=== PATIENT | female | born 1985 | race Caucasian/White ===

== ENCOUNTER 2019-03-28 21:12 | Emergency (ER) | payer BC ==
[~2019-03-28] VITALS: Ht 162.6 cm; Wt 88.5 kg
[~2019-03-28 21:12] MED LIST: ALBU90OI INH; AMOX250 PO; GUAI120S1 PO; Naprosyn500 MG PO; SPACE CHAMBER1 EACH MC; Zithromax250 MG PO
== END 2019-03-28 22:45 | disposition home or self-care (01) ==
LOC: ER 21:12
DX: S80.02XA Contusion of left knee, initial encounter (principal); Z87.891 Personal history of nicotine dependence; Z88.1 Allergy status to other antibiotic agents; Z88.0 Allergy status to penicillin; Z88.5 Allergy status to narcotic agent; V00.211A Fall from ice-skates, initial encounter
CPT/HCPCS: 73564; 99283-25

== ENCOUNTER 2024-03-20 17:43 | Emergency (ER) | payer OTHER ==
[~2024-03-20] VITALS: Ht 157.5 cm; Wt 84.8 kg
[2024-03-20 18:00] VITALS: BP 121/76
[2024-03-20] MEDS ORDERED: Doxycycline Hyclate 100 MG TAB PO ONE (19:20)
[2024-03-20] MEDS ORDERED: DOXY100 PO (19:21)
== END 2024-03-20 19:36 | disposition home or self-care (01) ==
LOC: ER 17:43
DX: S61.254A Open bite of right ring finger without damage to nail, initial encounter (principal); W55.01XA Bitten by cat, initial encounter; Z87.891 Personal history of nicotine dependence; Z88.0 Allergy status to penicillin
CPT/HCPCS: 99283; A9270

== ENCOUNTER → 2024-08-28 | Outpatient (CLI) | payer OTHER ==
[~2024-08-28] MED LIST changes: +DOXY100 PO
[2024-08-28 18:10] LABS: BASOPHILS ABSOLUTE AUTO 0.02 K/mm3 (0.00-0.23); BASOPHILS PERCENT AUTO 0 % (0-2); EOSINOPHILS ABSOLUTE AUTO 0.08 K/mm3 (0.00-0.68); EOSINOPHILS PERCENT AUTO 2 % (0-6); Hematocrit 41.6 % (33.0-51.0); Hemoglobin 14.1 g/dL (11.5-16.0); IMMATURE GRAN ABSOLUTE AUTO 0.01 K/mm3 (0.00-0.10); IMMATURE GRAN PERCENT AUTO 0 % (0-1); LYMPHOCYTES ABSOLUTE AUTO 0.75 K/mm3 (0.84-5.20); LYMPHOCYTES PERCENT AUTO 15 % (21-46); MONOCYTES ABSOLUTE AUTO 0.38 K/mm3 (0.16-1.47); MONOCYTES PERCENT AUTO 8 % (4-13); Mean Corpuscular HGB 30.7 pg (26.0-34.0); Mean Corpuscular HGB Conc 33.9 g/dL (31.5-36.5); Mean Corpuscular Volume 91 fL (80-100); Mean Platelet Volume 10.5 fL (9.1-12.4); NEUTROPHILS ABSOLUTE AUTO 3.77 K/mm3 (1.96-9.15); NEUTROPHILS PERCENT AUTO 75 % (41-73); Platelet Count 211 K/mm3 (150-400); RDW Coefficient Variation 11.9 % (11.7-14.2); RDW Standard Deviation 39.1 fL (35.1-46.3); Red Blood Cell Count 4.59 M/mm3 (3.80-5.20); White Blood Cell Count 5.01 K/mm3 (4.00-11.30)
[2024-08-28 18:21] LABS: Albumin, Blood 3.8 g/dL (3.4-5.0); Albumin/Globulin Ratio 1.1 (0.8-1.8); Bilirubin, Total 0.5 mg/dL (0.1-1.0); Bun/Creatinine Ratio 13.4 (12.0-20.0); Calcium, Blood 8.6 mg/dL (8.5-10.1); Creatinine, Blood 0.82 mg/dL (0.40-1.00); Globulin, Blood 3.6 g/dL (2.2-4.0); Potassium, Blood 3.8 mmol/L (3.5-5.5); Total Protein, Blood 7.4 g/dL (6.4-8.2)
== END ==
LOC: LAB 18:04 → LAB SHORT 18:04
PROVIDERS: Emergency Medicine
DX: R11.2 Nausea with vomiting, unspecified (principal); R19.7 Diarrhea, unspecified
CPT/HCPCS: 80053; 83690; 85025